=== PATIENT | female | born 1975 | race Caucasian/White ===

== ENCOUNTER → 2021-11-04 | Outpatient (REF) | payer BC | LOC: M SFHCRHEU 09:02 | PROVIDERS: ATTEND Internal Medicine Rheumatology | DX: R76.8 Other specified abnormal immunological findings in serum (principal); M35.3 Polymyalgia rheumatica; R79.82 Elevated C-reactive protein (CRP) ==

== ENCOUNTER → 2021-11-05 | Outpatient (REF) | payer BC | LOC: M SFHCRHEU 09:38 | PROVIDERS: ATTEND Internal Medicine Rheumatology | DX: R76.8 Other specified abnormal immunological findings in serum (principal); M35.3 Polymyalgia rheumatica; R79.82 Elevated C-reactive protein (CRP); Z53.9 Procedure and treatment not carried out, unspecified reason ==